=== PATIENT | female | born 1990 | race African-American/Black ===

== ENCOUNTER 2016-12-13 16:45 | Day surgery (SDC) | payer MEDICARE, MEDICAID ==
[2016-12-13 17:38] VITALS: BMI 24.2
[2016-12-13 19:17] LABS: Amphetamine Not Detected (NotDetected); Methadone Not Detected (NotDetected); Methamphetamine Not Detected (NotDetected)
[2016-12-13 20:08] LABS: Bilirubin Negative (Negative); Blood, Urine Large (Negative); Glucose, Urine (Dipstick) Negative (Negative); Ketone, Urine Negative (Negative); Nitrite Negative (Negative); Protein, Urine (Dipstick) Trace mg/dL (Neg-Trace); Urobilinogen 0.2 mg/dL (0.2-1.0)
[2016-12-13 20:08] LABS: #Basophils 0.1 thou/uL (0.0-0.2); #Eosinphils 0.2 thou/uL (0.0-0.7); #Lymphocytes 3.3 thou/uL (1.20-3.40); #Monocytes 2.2 thou/uL (0.11-0.59); %Basophils 0.5 % (0.0-1.0); %Eosinophils 1.2 % (0.0-10.0); %Lymphocytes 18.4 % (21.0-51.0); %Monocytes 12.2 % (0.0-10.0); Hematocrit 32.7 % (36.0-47.0); Mean Platelet Volume 7.3 fL (7.4-10.4); Red Blood Cell (RBC) Count 3.71 mill/uL (4.20-5.40); White Blood Cell (WBC) Count 17.8 thou/uL (4.8-10.8)
[2016-12-13 20:09] LABS: Bacteria/HPF None Seen HPF (None Seen); Hyaline Casts/LPF 0-3 HYALINE CAST LPF (0-3 Hyaline); RBC/HPF GREATER THAN 50-TNTC HPF (0-3); Squamous Epithelial 0-3 HPF (0-3); WBC/HPF 0-3 HPF (0-3)
--- NOTE | 2016-12-13 20:20 | PDOC.EVN ---
Event Note - Event Note Event Note: Attending Addendum I personally evaluated the patient and discussed the management with Dr. San. Ramandeep lezama reviewe lorena maier H&P and it is repeated by me. I agree with the History, Examination, Assessment and Plan documented above with any addition or exceptions noted below. Patient presented for pink discharge on toilet paper today, beer consumption, and concern for baby. NST is reactive, FHT tracing is Cat 1. Speculum exam revealed a friable cervix. GBS and GC perfomed. VP3 performed. CBC, UDS obtained. Maternal vitals are normal. Maternal exam reveals soft gravid NT abdomen. Uterus without regular CTXs and is NT. Cx: Closed/thick/High Patient stable for discharge and will follow up with Dr Mix tomorrow. Planned repeat at 39 weeks is scheduled.
[2016-12-14] MEDS ORDERED: FLU VACC QS2017-18 36 mo. & older 0.5 ML SYRINGE IM ONE (09:00)
== END 2016-12-13 20:30 | disposition home or self-care (01) ==
LOC: L&D/OP 16:45
PROVIDERS: ATTEND Family Medicine
DX: O26.853 Spotting complicating pregnancy, third trimester (principal); O99.313 Alcohol use complicating pregnancy, third trimester; Z79.899 Other long term (current) drug therapy; Z98.891 History of uterine scar from previous surgery; Z3A.36 36 weeks gestation of pregnancy; Z87.891 Personal history of nicotine dependence
CPT/HCPCS: 80306; 81003; 81015; 85025; 87077; 87081; 87480; 87491; 87510; 87591; 87660

== ENCOUNTER 2016-12-29 04:53 | Inpatient (IN) | payer MEDICARE, MEDICAID ==
[2016-12-29 05:36] VITALS: BMI 25.7
[2016-12-29] MEDS ORDERED: Docusate 100 MG CAP PO PRN (06:13)
[2016-12-29] MEDS ORDERED: Acetaminophen 500 MG TAB PO PRN (06:13)
[2016-12-29] MEDS ORDERED: Promethazine HCl 25 MG/ML VIAL IM PRN ×2 (06:13→07:13)
[2016-12-29] MEDS ORDERED: Ondansetron HCl/PF 4 MG/2 ML Vial IVP PRN ×2 (06:13→10:52)
[2016-12-29] MEDS ORDERED: CEFAZOLIN/Water 2 GM/20 ML SYRINGE SLOW IVP SCH (06:15)
[2016-12-29] MEDS ORDERED: Bicitra 30 ML UDCUP PO SCH (06:15)
--- NOTE | 2016-12-29 06:22 | PDOC.LDHP ---
Labor and Delivery H&P Chief complaint: contractions, scheduled section HPI: 26 yo @ 38.3 presents for scheduled . First was delivered via section 04/08 nrfht. Complications with this include IUGR @ approx 3%. Pt denies gush of fluid but does report painful contractions since this morning. NKDA. Denies alcohol, tobacco and drugs; however, previous h/o drug use (amphetamine and marijuana) was noted in pt history. No chronic medical conditions. Denies headache, cp, sob, abdominal pain outside contractions and changes in vision. Dating criteria: last menstrual period, second trimester ultrasound Grav: 2 Para: 1 OB History Details: IUGR @ 3%, previous 04/08 nrfht Current complications: IUGR Abnormal US findings: Yes (IUGR) Current medications: none Previous surgical history: low tranverse CS Social history: none - Physical Exam Vital signs reviewed and normal: yes General: NAD, breathing through contractions Heart: RRR Lungs: CTAB Abdomen: NTTP Extremeties: no edema FHT: category 2, late decelerations (1 late, resolved), variability present - OB Labs Blood type: O RH: positive HIV: negative RPR: negative HEPSAg: negative 1 hour GCT: negative GBS: positive Rubella: immune - Assessment L&D Assessment: scheduled repeat section - Plan Plan: admit to L&D, to OR for section -: repeat scheduled h/o IUGR repeat HepB, HIV, RPR nesthesiology consulted continue external monitors FHTs reassuring cat 2: 1 decel, resolved, mod variability, baseline HR 145, + accels continue w/ plan of care <Quinn Raman - Last Filed: 12/29/16 06:18> <Lisa Recinos - Last Filed: 12/30/16 11:39> Allergies/Adverse Reactions: Allergies Allergy/AdvReac Type Severity Reaction Status Date / Time No Known Allergies Allergy Verified 12/13/16 17:37 Attending Addendum - Attending Addendum I personally evaluated the patient and discussed the management with resident team. I agree with the History, Examination, Assessment and Plan documented above with any addition or exceptions noted below. 26 yo female at 38.4 wks 1. sIUP: IOB labs reviewed. Sonos reviewed. 1 hour gtt WNL. 3T negative. GBS positive. Tdap and flu given. Incomplete care. Vertex. Right lateral placenta. EFW = 5 lbs. 2. growth restriction: At 3%tile currently. Good UA dopplers. Discussed R/ B/A with patient. Due to poor follow up and other social issues decided to schedule repeat LTCS today. Upon arrive was placed on monitor. Noted to have regular contractions that patient started to feel earlier this morning -- latent labor. FHT cat 1 to cat 2 with occasional late decels with some contractions. Therefore, reaffirmed need for delivery. 3. hx of LTCS x1: R/B/A discussed. Patient would like to proceed with repeat. 4. Hypertrophic scar: Will revised during section. 5. Anemia of 6. Short interval 7. hx of marijuana use in early : UDS negative x2 during . 8. HR HPV pos: Routine screening with cytology Ancef given. Proceed to section. Elisha <Lisa Recinos - Last Filed: 12/30/16 11:39>
[2016-12-29 06:37] LABS: Hematocrit 34.5 % (36.0-47.0); Mean Platelet Volume 7.6 fL (7.4-10.4); Red Blood Cell (RBC) Count 3.99 mill/uL (4.20-5.40); White Blood Cell (WBC) Count 17.3 thou/uL (4.8-10.8)
[2016-12-29] MEDS ORDERED: Lactated Ringer's 1,000 ML IV SCH ×2 (07:00)
[2016-12-29] MEDS ORDERED: Morphine PF 1 MG/ML SYR ONE (07:02)
[2016-12-29] MEDS ORDERED: Oxytocin 10 UNITS/ML VIAL ONE (07:03)
[2016-12-29] MEDS ORDERED: Ondansetron HCl/PF 4 MG/2 ML Vial ONE (07:03)
[2016-12-29] MEDS ORDERED: Eucerin (Mineral Oil/Petrolatum,White) 30 gm Jar TOP PRN (07:13)
[2016-12-29] MEDS ORDERED: diphenhydrAMINE 50 MG/ML VIAL IVP PRN ×2 (07:13→12:08)
[2016-12-29] MEDS ORDERED: Naloxone HCl 0.4 mg/ml Vial IVP PRN ×2 (07:13)
[2016-12-29] MEDS ORDERED: Naloxone HCl 0.4 mg/ml Vial IV PRN (07:13)
[2016-12-29] MEDS ORDERED: Ketorolac Tromethamine 30 MG/ML VIAL IVP PRN (07:13)
[2016-12-29] MEDS ORDERED: Communication Order-Pharmacy FS SCH (07:15)
[2016-12-29] MEDS ORDERED: ePHEDrine/0.9% NaCl/PF SYRINGE 50 mg/10 ml ONE (07:36)
[2016-12-29 08:06] LABS: Amphetamine Not Detected (NotDetected); Methadone Not Detected (NotDetected); Methamphetamine Not Detected (NotDetected)
[2016-12-29] MEDS ORDERED: Ibuprofen 800 MG TAB PO SCH ×3 (10:00→14:00)
[2016-12-29] MEDS ORDERED: LR / Pitocin 40 units/1000 ml 1,000 ML ONE (10:05)
[2016-12-29] MEDS ORDERED: Lanolin Ointment 7 GM TUBE TOP PRN (10:52)
[2016-12-29] MEDS ORDERED: Adacel (T-DAP) 0.5 ML VIAL IM ONE (10:52)
[2016-12-29] MEDS ORDERED: Acetaminophen 325 MG TAB PO PRN (10:52)
[2016-12-29] MEDS ORDERED: Acetaminophen/Codeine 30-300mg Tablet PO PRN (10:52)
--- NOTE | 2016-12-29 11:15 | OP-2 ---
DATE OF PROCEDURE: 12/29/2016 RESIDENT SURGEON: Adolfo Bustos M.D. ATTENDING SURGEONS: Charlotte Hale DO; Fariba Berumen MD ATTENDING SURGEON: Lisa Recinos M.D. PROCEDURE: Elective repeat low transverse section. PREOPERATIVE DIAGNOSES: 1. Term intrauterine in latent labor. 2. growth restriction. 3. Short intergestational interval with prior section. 4. Nonreassuring heart tones. 5. GBS carrier. 6. Marijuana use in 1T. POSTOPERATIVE DIAGNOSES: 1. Term intrauterine , delivered. 2. SGA . 3. Short intergestational interval with previous section. 4. Uterine fibroid measuring approximately 1.5 cm in diameter. 5. GBS carrier 6. Marijuana use in 1T. 7. Significant adhesions in the fascial and peritoneal layers. 8. Viable female with terminal meconium. ANESTHESIA: Spinal. INDICATIONS: Ms. Mistry is a 26-year-old at 38.4 weeks gestation who presents for a scheduled repeat indicated for severe growth restriction and short intergestational interval. Found to have painful regular contractions in latent labor. Occasional late decels with some contractions. R/B /A discussed. Patient agreed to continue with repeat delivery. PROCEDURE IN DETAIL: After risks, benefits, and alternatives were explained to the patient and informed consent was obtained. Preoperative antibiotics of cefazolin 2 grams IV was given. The patient was taken to the operating room and spinal anesthesia was initiated. She was placed in supine position with left lateral tilt and prepped and draped in the usual sterile fashion. Pfannenstiel incision was made with a scalpel and carried down to the level of the fascia which was sharply nicked. The fascia was cut and extended bilaterally with Walter scissors. Inferior and superior edges of the fascia were elevated with Maya clamps and the underlying recti muscles were sharply and bluntly dissected free. There was a significant amount of scar tissue noted between the fascia and the rectus muscles. The recti were divided digitally and using Bovie cautery due to adhesions. The peritoneum was entered bluntly and manually retracted. The bladder blade was placed. Significant adhesions were noted on the anterior surface of the uterus. A bladder flap was created with Metzenbaum scissors. A low transverse score was made with scalpel and a midline incision was carried down with scalpel. The uterus was bluntly entered. Hysterotomy was extended superiorly and inferiorly. Clear fluid was noted at this time. The infant was delivered with fundal pressure. Cord mouth and nares were bulb suctioned. Cord was clamped and cut and a viable female was handed to the awaiting nurse. Cord blood was collected. Placenta was manually extracted and found to be intact with 3-vessel cord. The uterus was externalized and the endometrium was curetted with a dry lap. Bladder blade was replaced and the uterus was closed using a running locking 0 Monocryl suture. Hemostasis was obtained with a few small bleeding vessels using Bovie cautery. The abdominal cavity was swept free of clots and the uterus was internalized. Hysterotomy was again noted to be hemostatic. The peritoneum was closed using a running 2-0 Vicryl suture. The pyramidalis muscles were closed using a single horizontal mattress suture with 2-0 Vicryl. Fascia was closed using an 0 PDS suture in a running nonlocking fashion. Subcutaneous tissue was irrigated and all bleeding vessels were stopped with Bovie cautery. Subcutaneous layer was closed using simple interrupted sutures using 2-0 Vicryl. Skin was closed using a running subcuticular 4-0 Monocryl stitch. Dermabond was placed over the incision. Patient tolerated the procedure well. Mother was taken to the recovery room in stable condition. ESTIMATED BLOOD LOSS: 750 mL COMPLICATIONS: None. SPECIMENS: Cord blood sent to lab for blood type. FINDINGS: Grossly normal viable female with Apgars of 8 and 9, born at 0804. Baby did require suctioning with Brower catheter that yielded 14 mL of clear fluid. Grossly normal placenta with 3-vessel cord was discarded. DRAINS: Brower catheter draining clear urine. Dr. Recinos was present for the entire procedure. [facility]ITAL[facility]uan
[2016-12-29] MEDS: Lactated Ringer's 1,000 ML IV SCH ×2 (11:23→18:14)
[2016-12-29] MEDS ORDERED: diphenhydrAMINE 50 MG/ML VIAL ONE (11:27)
[2016-12-29] MEDS: Ibuprofen 800 MG TAB PO SCH ×3 (14:25→21:59)
--- NOTE | 2016-12-29 15:16 | PDOC.PP ---
Post Progress Note Post Day #: 0 Subjective: Pt asleep but easily arousable. Has not yet tried anything PO, but denies any nausea or vomiting. Would like to try some jello. Has not yet had any pain medicine but was about to ask for some. PO intake tolerated: no Flatus: no Ambulation: no Vital Signs (12 hours) Temp Pulse Resp BP 12/29/16 13:33 79 99/52 L 12/29/16 12:30 80 98/52 L 12/29/16 11:40 97.9 F 79 20 12/29/16 11:20 97.9 F 79 20 12/29/16 11:00 97.9 F 79 20 102/50 L 12/29/16 05:47 98.2 F 63 16 Weight Weight 59.874 kg - Physical Examination General: NAD Cardiovascular: no m/r/g Deviation from normal: mildly tachycardic Respiratory: clear to auscultation bilaterally, non-labored breathing Abdominal: lochia (minimal lochia rubra), no distention, appropriately TTP Fundus firm & at: 2cm above umbilicus, but firm Extremities: negative homans (B) Skin: no rash Deviation from normal: CS incision covered with pressure dressing Psychiatric: A&Ox3 Result Diagrams: 12/29/16 05:25 Additional Labs: Post Labs Blood Type O POSITIVE 12/29/16 05:25 Hep Bs Antigen Non-Reactive S/CO (NonReactive) 12/29/16 05:25 Urine- 500ml clear urine (1) delivery, delivered, current hospitalization Code(s): O82 - ENCOUNTER FOR DELIVERY WITHOUT INDICATION Status: Acute Comment: 26yo -> @ 38.3wks approx 7hrs post-op s/p RLTCS for IUGR infant. Pain control pending initiation of po meds and advance diet as tolerated. Encourage ambulation tomorrow and routine post-op care. Bottle feeding, therefore tylenol #3 + ibuprofen should control pain. Mildly tachycardic, but otherwise asymptomatic regarding blood loss. Pending am H&H. Will draw sooner if further symptoms develop. (2) Marijuana smoker Code(s): F12.20 - CANNABIS DEPENDENCE, UNCOMPLICATED Status: Resolved Comment: UDS negative. Pending mec & urine drug screens. <Charlotte Hale - Last Filed: 12/29/16 15:15> Vital Signs (12 hours) Temp Pulse Resp BP Pulse Ox 12/30/16 12:00 97.9 F 83 16 12/30/16 11:24 97.9 F 83 16 106/63 12/30/16 08:02 99 100/52 L 12/30/16 08:00 98.5 F 99 20 99 12/30/16 07:43 98.5 F 101 H 20 89/58 L 97 12/30/16 06:30 98.3 F 92 20 104/53 L 100 Weight Weight 59.874 kg Result Diagrams: 12/30/16 06:06 Additional Labs: Post Labs Blood Type O POSITIVE 12/29/16 05:25 Hep Bs Antigen Non-Reactive S/CO (NonReactive) 12/29/16 05:25 <Lisa Recinos - Last Filed: 12/30/16 14:12> Attending Addendum - Attending Addendum I personally evaluated the patient and discussed the management with Dr. Hale. I agree with the History, Examination, Assessment and Plan documented above with any addition or exceptions noted below. 26 yo female s/p RLTCS at 38.4 wks on 12/29/16 at 0804. POD/PPD#0 HD#1 1. s/p RLTCS (x2): Mild adhesions with lysis during . Mild blood loss at 750mL. Doing well in postop period. Good UOP. Currently receiving pitocin. Fundus is firm +[address] and dry. Pain adequately controlled. No postop N/V per patient. Will advance to full liquids. 2. SGA female infant 3. Anemia of : H/H to be repeated in AM. Will likely need iron supplementation. 6. Short interval: Will continue to address need to wait at least 18 months between pregnancies. Will educate on contraception. 7. hx of marijuana use in early : UDS negative x2 during . 8. HR HPV pos: Routine screening with cytology 9. Abscess: Boil/folliculitis noted 2 to 3 cm below skin incision. Was not I&D during section. Will treat with topical and oral. Continue routine postop/ care. ABrayMD <Lisa Recinos - Last Filed: 12/30/16 14:12>
[2016-12-29] MEDS ORDERED: hydrOXYzine 25 MG TAB PO PRN (15:17)
[2016-12-29] MEDS ORDERED: hydrOXYzine 25 MG TAB PO SCH (15:30)
[2016-12-29] MEDS ORDERED: HYDROcodone/Acetaminophen 5/325 mg Tablet PO PRN ×2 (19:00)
[2016-12-29] MEDS ORDERED: FLU VACC QS2017-18 36 mo. & older 0.5 ML SYRINGE IM ONE (21:00)
[2016-12-30] MEDS: Lactated Ringer's 1,000 ML IV SCH ×2 (03:24→11:38)
[2016-12-30] MEDS: Ibuprofen 800 MG TAB PO SCH ×3 (06:34→20:57)
[2016-12-30 06:37] LABS: Hematocrit 27.7 % (36.0-47.0); Mean Platelet Volume 7.6 fL (7.4-10.4); White Blood Cell (WBC) Count 16.1 thou/uL (4.8-10.8)
--- NOTE | 2016-12-30 08:16 | PDOC.FM ---
- Subjective Subjective: Today she feels "ok". She complains about continued abd pain, at a 7 out of 10. She has not gotten out of bed yet. She endorses having BM, tolerated PO intake. So far, she has had one time dose of tylenol 3 and ibuprofen. She specifically denies dizziness, headache, chest pain or SOB. - Objective MAR Reviewed: Yes Vital Signs & Weight: Vital Signs (12 hours) Temp Pulse Resp BP Pulse Ox 12/30/16 08:02 99 100/52 L 12/30/16 08:00 98.5 F 99 20 99 12/30/16 07:43 98.5 F 101 H 20 89/58 L 97 12/30/16 06:30 98.3 F 92 20 104/53 L 100 12/30/16 00:35 97.9 F 72 16 101/49 L 99 12/29/16 20:50 97.8 F 72 20 112/55 L 100 Weight Weight 59.874 kg I&O: 12/29/16 12/30/16 12/31/16 06:59 06:59 06:59 Intake Total 2653 Output Total 3800 Balance -1147 Result Diagrams: 12/30/16 06:06 <Maria Del RosarioMarco Antonio M - Last Filed: 12/30/16 08:14> - Objective Vital Signs & Weight: Vital Signs (12 hours) Temp Pulse Resp BP Pulse Ox 12/30/16 12:00 97.9 F 83 16 12/30/16 11:24 97.9 F 83 16 106/63 12/30/16 08:02 99 100/52 L 12/30/16 08:00 98.5 F 99 20 99 12/30/16 07:43 98.5 F 101 H 20 89/58 L 97 12/30/16 06:30 98.3 F 92 20 104/53 L 100 Weight Weight 59.874 kg I&O: 12/29/16 12/30/16 12/31/16 06:59 06:59 06:59 Intake Total 2653 Output Total 3800 800 Balance -1147 -800 Result Diagrams: 12/30/16 06:06 <Lisa Recinos - Last Filed: 12/30/16 15:26> Phys Exam - Physical Examination Constitutional: NAD HEENT: moist MMs, sclera anicteric Neck: no nodes, supple Respiratory: no wheezing, no rales, no rhonchi, clear to auscultation bilateral Cardiovascular: RRR, no significant murmur Negative rob Gastrointestinal: soft, no distention Uterus firm, 2 cm above umbilicus, tender to palpation, incision clean Minor lochia, but patient endorse recent change of pad. Musculoskeletal: no edema Neurological: non-focal, moves all 4 limbs Lymphatic: no nodes Psychiatric: normal affect Skin: no rash <Marco Antonio Mix - Last Filed: 12/30/16 08:14> Dx/Plan (1) delivery, delivered, current hospitalization Code(s): O82 - ENCOUNTER FOR DELIVERY WITHOUT INDICATION Status: Acute Plan: OVerall, patient is feeling better, incision healing well. She still needs to walk, she has tenderness but has not maxed out on current pain medication dosage and can receive more from nursing and fundus is firm but 2 cm above umbilicus. To follow up on today is vitals. She is not tachycardic yet, but HR about 90, increase from 70. There is no SOB, cough, poor oxygenation. BP is about constant at 100 systolic. She has an abscess prior to this hospitalization which she will be placed on bactrim for 10 days, with I&D. <Marco Antonio Mix Nallely - Last Filed: 12/30/16 08:14> Attending Addendum - Attending Addendum I personally evaluated the patient and discussed the management with Dr. Mix. I agree with the History, Examination, Assessment and Plan documented above with any addition or exceptions noted below. 26 yo female s/p RLTCS at 38.4 wks on 12/29/16 at 0804. POD/PPD#1 HD#2 1. s/p RLTCS (x2): Mild adhesions with lysis during . Mild blood loss at 750mL. Doing well in postop period. Good UOP. Fundus is firm +2 umbilicus. Uterus appropriately tender. +BS. +BM/flatus. Bandage removed. Incision healing well -- no drainage/discharge/erythema/edema/dehiscence. Pain adequately controlled with PO meds. Tolerating diet. Mild dizziness this AM with standing. None otherwise. 2. SGA female 3. Anemia of and now related to blood loss: H/H down to 12/02. Iron started. 6. Short interval: Will continue to address need to wait at least 18 months between pregnancies. Will educate on contraception. 7. hx of marijuana use in early : UDS negative x2 during . with positive UDS. Likely false positive 2/2 medications used after spinal for BP control. Similar episode with previous . Patient denies ever using meth. [facility] screen pending. CM/SW following due to protocol. 8. HR HPV pos: Routine screening with cytology 9. Abscess: Boil/folliculitis noted 2 to 3 cm below skin incision. Was not I&D during section. Will treat with topical and oral. Continue routine postop/ care. Elisha <Lisa Recinos - Last Filed: 12/30/16 15:26>
[2016-12-30] MEDS ORDERED: FLU VACC QS2017-18 36 mo. & older 0.5 ML SYRINGE IM ONE (09:00)
[2016-12-30] MEDS: Sulfameth/Trimethoprim DS 800-160mg TAB PO SCH ×2 (09:58→20:57)
[2016-12-30] MEDS ORDERED: Mupirocin 2% Ointment 22 GM Tube TOP SCH (11:15)
[2016-12-30] MEDS: Ferrous Sulfate 325 MG TAB PO SCH (15:30)
[2016-12-30] MEDS: Acetaminophen/Codeine 30-300mg Tablet PO PRN ×2 (15:30→22:06)
[2016-12-30] MEDS: Mupirocin 2% Ointment 22 GM Tube TOP SCH ×2 (15:31→20:57)
[2016-12-31] MEDS: Acetaminophen/Codeine 30-300mg Tablet PO PRN ×2 (03:49→11:19)
[2016-12-31 05:21] VITALS: BP 92/55
[2016-12-31] MEDS: Ibuprofen 800 MG TAB PO SCH ×2 (06:14→15:11)
--- NOTE | 2016-12-31 07:03 | PDOC.PP ---
Addendum entered and electronically signed by Charlotte Hale DO 12/31/16 09:24: Additionally, incidental abscess on mons pubis noted during section. Empirically treating with bactrim DS to avoid infection of surgical site. Continue x 6 more days. Pt counseled to continue meds as prescribed. Original Note: Post Progress Note Post Day #: 2 Subjective: Patient feels pain is better controlled today.She has walked, eaten, had BM, does not feel short of breath or dizzy. She thinks she is ready for home today. She complains of continued soreness at incision site. PO intake tolerated: yes Flatus: yes Ambulation: yes Vital Signs (12 hours) Temp Pulse Resp BP Pulse Ox 12/31/16 04:50 98.7 F 91 18 92/55 L 97 12/30/16 23:45 98.0 F 83 16 108/57 L 99 12/30/16 19:40 98.3 F 99 20 109/57 L 97 Weight Weight 59.874 kg - Physical Examination General: NAD Cardiovascular: no m/r/g, RRR Respiratory: clear to auscultation bilaterally, non-labored breathing Abdominal: + bowel sounds, no distention, appropriately TTP Fundus firm & at: 1 cm below umbilicus Extremities: negative homans (B) Skin: CS incision dry & intact, no rash Deviation from normal: Superficial skin abscess present prior to admission, 2 cm inferior to incis Neurological: no gross focal deficits Psychiatric: A&Ox3, normal affect Result Diagrams: 12/30/16 06:06 Additional Labs: Post Labs Blood Type O POSITIVE 12/29/16 05:25 Hep Bs Antigen Non-Reactive S/CO (NonReactive) 12/29/16 05:25 (1) delivery, delivered, current hospitalization Code(s): O82 - ENCOUNTER FOR DELIVERY WITHOUT INDICATION Status: Acute Comment: S/p day 2 RLTCS, no complication with EBL of 750. She is doing well at this time and has resumed normal activity. She still has some soreness but understand that it will improved over the new week. She delivered a SGA female who is doing well without complication. She has anemia of of prior to admission and with minor blood loss during . She is to start with iron supplementation with stool softner. Contraceptive use will likely be nexplanon. Patient agrees to come to office in 2 week for follow up and definitive contraceptive planning. CM/SW will be following due to possible UDS positive meth in baby. However, mother had been universally negative for meth during this . She will be receiving bactrim empirically for abscess found incidentally from admission. <Marco Antonio Mix - Last Filed: 12/31/16 07:02> Vital Signs (12 hours) Temp Pulse Resp BP Pulse Ox 12/31/16 04:50 98.7 F 91 18 92/55 L 97 12/30/16 23:45 98.0 F 83 16 108/57 L 99 Weight Weight 59.874 kg Result Diagrams: 12/30/16 06:06 Additional Labs: Post Labs Blood Type O POSITIVE 12/29/16 05:25 Hep Bs Antigen Non-Reactive S/CO (NonReactive) 12/29/16 05:25 <Lisa Recinos - Last Filed: 12/31/16 10:38> Attending Addendum - Attending Addendum I personally evaluated the patient and discussed the management with Dr. Mix and Dr. Hale. I agree with the History, Examination, Assessment and Plan documented above with any addition or exceptions noted below. 26 yo female s/p RLTCS at 38.4 wks on 12/29/16 at 0804. POD/PPD#2 HD#3 1. s/p RLTCS (x2): Mild adhesions with lysis during . Mild blood loss at 750mL. Doing well in postop period. Good UOP. Fundus is firm at umbilicus. Uterus appropriately tender. +BS. +BM/flatus. Incision healing well -- no drainage/discharge/erythema/edema/dehiscence. Pain adequately controlled with PO meds. Tolerating diet. Ready for d/c to home today. 2. SGA female 3. Anemia of and now related to blood loss: H/H down to 12/02. Iron started. 6. Short interval: Will continue to address need to wait at least 18 months between pregnancies. Would like Nexplanon for contraception. 7. hx of marijuana use in early : UDS negative x2 during . with positive UDS. Likely false positive 2/2 medications used after spinal for BP control. Similar episode with previous . Patient denies ever using meth. [facility] screen pending. CM/SW following due to protocol. 8. HR HPV pos: Routine screening with cytology 9. Abscess: Boil/folliculitis noted 2 to 3 cm below skin incision. Was not I&D during section. Will treat with topical and oral. Okay for d/c today. Follow up in 1 to 2 wks. Precautions discussed related to surgical site. Elisha <Lisa Recinos - Last Filed: 12/31/16 10:38>
[2016-12-31 11:00] VITALS: TEMP 98.3
[2016-12-31] MEDS: Mupirocin 2% Ointment 22 GM Tube TOP SCH (11:08)
[2016-12-31] MEDS: Sulfameth/Trimethoprim DS 800-160mg TAB PO SCH (11:09)
[2016-12-31] MEDS: Ferrous Sulfate 325 MG TAB PO SCH (11:09)
[2016-12-31] MEDS ORDERED: Adacel (T-DAP) 0.5 ML VIAL IM ONE (12:42)
== END 2016-12-31 16:00 | disposition home or self-care (01) | DRG 765 ==
LOC: L&D 04:53 → 3SE 11:20
PROVIDERS: ADMIT Family Medicine; ATTEND Family Medicine
PROC: 10D00Z1 Extraction of Products of Conception, Low, Open Approach (ICD-10-PCS; principal; 2016-12-29)
DX: O76 Abnormality in fetal heart rate and rhythm complicating labor and delivery (principal); O98.52 Other viral diseases complicating childbirth; O99.324 Drug use complicating childbirth; L02.215 Cutaneous abscess of perineum; Z37.0 Single live birth; Z3A.38 38 weeks gestation of pregnancy; O36.5930 Maternal care for other known or suspected poor fetal growth, third trimester, not applicable or unspecified; O99.824 Streptococcus B carrier state complicating childbirth; F12.10 Cannabis abuse, uncomplicated; D25.9 Leiomyoma of uterus, unspecified; O99.89 Other specified diseases and conditions complicating pregnancy, childbirth and the puerperium; O99.02 Anemia complicating childbirth; D64.9 Anemia, unspecified; O34.219 Maternal care for unspecified type scar from previous cesarean delivery; Z23 Encounter for immunization
CPT/HCPCS: 36415; 76815; 80306; 85027; 86780; 86850; 86900; 86901; 87340; 87389; 88307; 90715; A4216; J1200; J2274; J2405; J2590

== ENCOUNTER 2017-09-11 17:41 | Emergency (ER) | payer MEDICARE, OTHER ==
[2017-09-11] MEDS ORDERED: HYDROcodone/Acetaminophen 10/325 mg Tablet ONE (19:05)
[2017-09-11] MEDS ORDERED: Ketorolac Tromethamine 30 MG/ML VIAL ONE (19:05)
== END 2017-09-11 20:00 | disposition home or self-care (01) ==
LOC: ERS 17:41
DX: K02.9 Dental caries, unspecified (principal); K03.81 Cracked tooth; F17.210 Nicotine dependence, cigarettes, uncomplicated
CPT/HCPCS: 99283; J1885

== ENCOUNTER 2018-03-03 20:19 | Emergency (ER) | payer MEDICARE, OTHER ==
[2018-03-03] MEDS ORDERED: Ondansetron ODT 4 MG TAB ONE (21:08)
[2018-03-03 21:14] LABS: #Eosinphils 0.1 thou/uL (0.0-0.7); #Lymphocytes 1.1 thou/uL (1.20-3.40); #Monocytes 0.7 thou/uL (0.11-0.59); #Neutrophils 8.5 thou/uL (1.40-6.50); %Basophils 0.4 % (0.0-1.0); %Eosinophils 0.5 % (0.0-10.0); %Lymphocytes 10.2 % (21.0-51.0); %Monocytes 6.6 % (0.0-10.0); %Neutrophils 82.2 % (42.0-75.0); Hemoglobin 12.2 g/dL (12.0-16.0); Mean Corpuscular HGB CONC 32.1 g/dL (32.0-36.0); Mean Corpuscular Hemoglobin 26.5 pg (27.0-31.0); Mean Corpuscular Volume 82.5 fL (78.0-98.0); Platelet Count 420 thou/uL (130-400); RBC Distribution Width 16.2 % (11.5-14.5); Red Blood Cell (RBC) Count 4.59 mill/uL (4.20-5.40); White Blood Cell (WBC) Count 10.4 thou/uL (4.8-10.8)
[2018-03-03 21:29] LABS: ALT (SGPT) 12 U/L (8-55); AST (SGOT) 18 U/L (5-34); Alkaline Phosphatase 87 U/L (40-150); Anion Gap 12 mmol/L (10-20); BUN (Urea Nitrogen) 15 mg/dL (7.0-18.7); Bilirubin, Total 0.3 mg/dL (0.2-1.2); Calc. Creatinine Clearance 0 mL/min (70-130); Calcium 8.1 mg/dL (7.8-10.44); Carbon Dioxide 23 mmol/L (22-29); Chloride 104 mmol/L (98-107); Estimated GFR-MDRD 88; Globulin 3.6 g/dL (2.4-3.5); Glucose 110 mg/dL (70-105); Potassium 3.1 mmol/L (3.5-5.1); Protein, Total 7.6 g/dL (6.0-8.3); Sodium 136 mmol/L (136-145)
[2018-03-03] MEDS ORDERED: NS 0.9% w/ 20 MEQ KCL 1,000 ML IV SCH (22:30)
[2018-03-03] MEDS ORDERED: Morphine 4 MG/ML VIAL ONE (23:25)
[2018-03-04 00:59] LABS: Bilirubin Negative (Negative); Blood, Urine Negative (Negative); Clarity CLEAR (Clear); Glucose, Urine (Dipstick) Negative (Negative); Leukocyte Negative (Negative); Nitrite Negative (Negative); Protein, Urine (Dipstick) Trace mg/dL (Neg-Trace); Urobilinogen 0.2 mg/dL (0.2-1.0); pH, Urine 6.5 (5.0-9.0)
[2018-03-04 01:03] LABS: Pregnancy Test - Urine (BHCG) Negative (Negative); Pregu Control Background? CLEAR/WHITE (CLR/WHITE); Pregu Control Bar Appear? YES (CONTROL BAR)
== END 2018-03-04 01:30 | disposition home or self-care (01) ==
LOC: ERS 20:19
DX: E87.6 Hypokalemia (principal); R19.7 Diarrhea, unspecified; R11.10 Vomiting, unspecified; R10.816 Epigastric abdominal tenderness; F17.210 Nicotine dependence, cigarettes, uncomplicated
CPT/HCPCS: 36415; 80053; 81003; 81025; 83690; 85025; 96365; 96366; 96375; J2270; Q0162

== ENCOUNTER 2019-12-18 10:46 | Emergency (ER) | payer MEDICARE, MEDICAID, OTHER ==
[2019-12-18 11:09] LABS: #Basophils 0.1 thou/uL (0.0-0.2); #Eosinphils 0.1 thou/uL (0.0-0.7); #Lymphocytes 1.5 thou/uL (1.20-3.40); #Monocytes 0.9 thou/uL (0.11-0.59); #Neutrophils 4.7 thou/uL (1.40-6.50); %Basophils 1.2 % (0.0-1.0); %Eosinophils 0.9 % (0.0-10.0); %Lymphocytes 20.2 % (21.0-51.0); %Monocytes 12.6 % (0.0-10.0); Hemoglobin 10.8 g/dL (12.0-16.0); Mean Corpuscular HGB CONC 31.9 g/dL (32.0-36.0); Mean Corpuscular Hemoglobin 26.9 pg (27.0-31.0); Mean Corpuscular Volume 84.3 fL (78.0-98.0); Mean Platelet Volume 8.7 fL (7.4-10.4); Platelet Count 317 thou/uL (130-400); RBC Distribution Width 17.4 % (11.5-14.5); Red Blood Cell (RBC) Count 4.04 mill/uL (4.20-5.40); White Blood Cell (WBC) Count 7.3 thou/uL (4.8-10.8)
--- NOTE | 2019-12-18 11:29 | RAD ---
CHEST 2 VIEWS: Date: 12/18/2019 HISTORY: Chest pain. COMPARISON: Radiograph from 2015. FINDINGS: Lungs are clear. No pneumothorax or effusion. Cardiac silhouette and mediastinal contours within norm al limits. Prominent bilateral nipple shadows. IMPRESSION: No acute intrathoracic abnormality. POS: OFF
[2019-12-18 11:34] LABS: ALT (SGPT) 24 U/L (8-55); AST (SGOT) 45 U/L (5-34); Albumin 3.4 g/dL (3.5-5.0); Alkaline Phosphatase 77 U/L (40-110); Anion Gap 10 mmol/L (10-20); BUN (Urea Nitrogen) 11 mg/dL (7.0-18.7); Bilirubin, Total 0.3 mg/dL (0.2-1.2); Calc. Creatinine Clearance 0 mL/min (70-130); Calcium 8.1 mg/dL (7.8-10.44); Carbon Dioxide 25 mmol/L (22-29); Chloride 105 mmol/L (98-107); Estimated GFR-MDRD 90; Globulin 3.2 g/dL (2.4-3.5); Glucose 110 mg/dL (70-105); Protein, Total 6.6 g/dL (6.0-8.3); Sodium 137 mmol/L (136-145)
[2019-12-18 11:37] LABS: Potassium 2.8 mmol/L (3.5-5.1)
[2019-12-18] MEDS ORDERED: Potassium Chloride 20 MEQ TAB ONE (12:36)
[2019-12-18 19:12] LABS: SARS-CoV-2 MS2 Positive; SARS-CoV-2 N Gene Negative; SARS-CoV-2 S Gene Negative; SARS-CoV-2 by NAA Not Detected (NotDetected); SARS-CoV-2 orf1ab Negative
--- NOTE | 2019-12-22 11:03 | EKG ---
Test Reason : Blood Pressure : / mmHG Vent. Rate : 075 BPM Atrial Rate : 075 BPM P-R Int : 120 ms QRS Dur : 066 ms QT Int : 350 ms P-R-T Axes : 041 023 029 degrees QTc Int : 390 ms Normal sinus rhythm with sinus arrhythmia Cannot rule out Anterior infarct , age undetermined Abnormal ECG Confirmed by ALLEN WALDRON DO ([id number]), editorial writer JOHN CHAMBERS ([id number]) on 12/22/2019 11:02:44 AM Referred By: Confirmed By:ALLEN WALDRON DO
== END 2019-12-18 13:20 | disposition home or self-care (01) ==
LOC: ERS 10:46
DX: E87.6 Hypokalemia (principal); R07.2 Precordial pain; Z20.828 Contact with and (suspected) exposure to other viral communicable diseases
CPT/HCPCS: 71046; 80053; 84484; 85025; 93005; U0003; 36415; 87635

== ENCOUNTER 2021-04-14 10:44 | Emergency (ER) | payer MEDICARE, OTHER ==
[2021-04-14] MEDS ORDERED: diphenhydrAMINE 25 MG CAP ONE (11:25)
[2021-04-14] MEDS ORDERED: predniSONE 20 MG TAB ONE (11:25)
[2021-04-14] MEDS ORDERED: Ibuprofen 200 MG TAB ONE (11:25)
== END 2021-04-14 12:50 | disposition home or self-care (01) ==
LOC: ERS 10:44
DX: T78.40XA Allergy, unspecified, initial encounter (principal)
CPT/HCPCS: 99284; J7512

== ENCOUNTER 2021-04-16 12:29 | Emergency (ER) | payer MEDICARE, OTHER ==
[2021-04-16] MEDS ORDERED: Ketorolac Tromethamine 30 MG/ML VIAL ONE (13:11)
== END 2021-04-16 13:43 | disposition home or self-care (01) ==
LOC: ERS 12:29
DX: T24.102A Burn of first degree of unspecified site of left lower limb, except ankle and foot, initial encounter (principal); X10.0XXA Contact with hot drinks, initial encounter
CPT/HCPCS: 16000; 96372; J1885